=== PATIENT | female | born 1995 | race American Indian/Alaskan Native ===

== ENCOUNTER 2019-06-05 10:47 | Emergency (ER) | payer SELFPAY ==
[2019-06-05 11:07] VITALS: BP 115/68
[2019-06-05 11:43] LABS: HCG Qualitative,Urine Positive (Negative)
[2019-06-05 11:56] LABS: Bacteria,Urine 4+ /HPF (Negative); Bilirubin,Urine NEG (Negative); Blood,Urine NEG (Negative); Color,Urine Yellow (Yellow); Mucus,Urine 1+ /HPF
[2019-06-05 11:58] LABS: WBC,Urine < 1.0 /HPF (0.0-6.0)
--- NOTE | 2019-06-05 12:38 | Emergency Department Report ---
Chief Complaint: Headache Stated Complaint: ABD PAIN Time Seen by Provider: 06/05/19 12:35 - HPI History of Present Illness: 23 y o female presents to Ed cc of headache and dysuria x 2 - days she denies f/c/n/v/ trauma - ROS Review of Systems: as noted in HPI - Exam Vital Signs: Vital Signs 06/05/19 11:05 Temperature 98.4 F Pulse Rate 83 Respiratory 18 Rate Blood Pressure 115/68 O2 Sat by Pulse 98 Oximetry Physical Exam: GEN: AAO x 3, no acute distress ABD: non tender to palpation MSE screening note: Focused history and physical exam performed. Due to findings the following was ordered: ED Medical Decision Making - Medical Decision Making Discussed with pt to follow up with obgyn as reffered Discussed antibiotics x 7 days vital signs normal, no acute distress ED Disposition for MSE Clinical Impression: UTI (urinary tract infection), test positive Disposition: MED SCREENING EXAM-LEFT Is pt being admited?: No Does the pt Need Aspirin: No Condition: Stable Instructions: (ED), Urinary Tract Infection in Women (ED) Additional Instructions: follow up with [facility] Prescriptions: Nitrofurantoin [place]/M-Cryst [Macrobid CAP] 100 mg PO Q12HR #14 capsule Referrals: [facility] [Outside] - 3-5 Days [facility] [Outside] - 3-5 Days [facility] [Outside] - 3-5 Days Forms: Work/School Release Form(ED) Time of Disposition: 12:36
== END 2019-06-05 12:41 | disposition left against medical advice (07) ==
LOC: ED 10:47
DX: O23.41 Unspecified infection of urinary tract in pregnancy, first trimester (principal); Z3A.00 Weeks of gestation of pregnancy not specified
CPT/HCPCS: 81001; 81025